=== PATIENT | male | born 1990 | race Caucasian/White ===

== ENCOUNTER 2016-11-04 19:22 | Emergency (ER) | payer SELFPAY | END 2016-11-04 21:48 | disposition home or self-care (01) | LOC: ER 19:22 | DX: R07.9 Chest pain, unspecified (principal); F41.9 Anxiety disorder, unspecified; R06.02 Shortness of breath; R00.2 Palpitations; M25.512 Pain in left shoulder; M25.511 Pain in right shoulder ==